=== PATIENT | female | born 1955 | race Caucasian/White ===

== ENCOUNTER 2018-08-09 14:45 | Emergency (ER) | payer MEDICARE, OTHER ==
[~2018-08-09] VITALS: Wt 67.2 kg
[2018-08-09] MEDS ORDERED: MAGN400O19 PO (15:08)
[2018-08-09] MEDS ORDERED: ACET325T45 PO (15:08)
[2018-08-09] MEDS ORDERED: BISA10SU75 PR (15:09)
[2018-08-09] MEDS ORDERED: NA P230E RC (15:10)
[2018-08-09] MEDS ORDERED: FER325 PO (15:11)
[2018-08-09] MEDS ORDERED: FLUO40CA PO (15:12)
[2018-08-09] MEDS ORDERED: IBUP-1545 PO (15:13)
[2018-08-09] MEDS ORDERED: LACO100T3 PO (15:13)
[2018-08-09] MEDS ORDERED: LEVO137T3 PO (15:14)
[2018-08-09] MEDS ORDERED: MAGN400T28 PO (15:14)
[2018-08-09] MEDS ORDERED: MIDO10TA PO (15:16)
[2018-08-09] MEDS ORDERED: MIRT15TA5 PO (15:16)
[2018-08-09] MEDS ORDERED: QUET200T27 PO (15:16)
[2018-08-09] MEDS ORDERED: RIBO400T PO (15:17)
[2018-08-09] MEDS ORDERED: SIMV5TAB14 PO (15:17)
[2018-08-09] MEDS ORDERED: SODI1TAB2 PO (15:18)
[2018-08-09] MEDS ORDERED: CHOL100062 PO (15:19)
[2018-08-09] MEDS ORDERED: TUBE5VIA3 ID (15:23)
[2018-08-09] MEDS ORDERED: DIPHENHYDRAMINE 25 MG CAP PO ONE (15:30)
[2018-08-09] MEDS ORDERED: LORAZEPAM 1 MG TAB PO ONE (15:30)
[2018-08-09 17:31] VITALS: BP 110/65; PULSE 100; RESP 22
--- NOTE | 2018-08-09 17:43 | ERD ---
ER Documentation Chief Complaint Chief Complaint bib ra from halfway for anxiety and allergic reaction, as per pt HPI 62-year-old female brought in from her halfway facility for a sensation of her throat closing and having difficulty breathing. Patient states this started after she ate lunch. She is complaining of shortness of breath and tightness in her throat. Otherwise history is limited as the patient is actively panicking. She does have a history of traumatic brain injury and psychiatric disorder. Per her daughter, her medications are currently being changed, so she thinks that may be this is why the patient is having an "episode" ROS All systems reviewed and are negative except as per history of present illness. Medications Home Meds Reported Medications Tuberculin,Purif.prot.deriv. (Tubersol) 5 Tub Unit/0.1 Ml Vial, 5 TUB ID QHS, VIAL INJECT 0.1ML INTRADERMALLY QHS EVERY 10 DAYS FOR PPD SCREENING FOR 11 DAYS READ IN 48HOURS.START DATE 08/05/18- END DATE 08/16/18 08/09/18 Cholecalciferol* (Vitamin D3*) 1,000 Unit Tablet, 2000 UNIT PO DAILY, TAB 08/09/18 Sodium Chloride* (Sodium Chloride*) 1 Gm Tablet, 2 GM PO TID, TAB 08/09/18 Simvastatin* (Simvastatin*) 5 Mg Tablet, 5 MG PO QHS, #30 TAB 08/09/18 Riboflavin (Riboflavin) 400 Mg Tablet, 400 MG PO DAILY, TAB 08/09/18 Quetiapine Fumarate* (Quetiapine Fumarate*) 200 Mg Tablet, 200 MG PO HS, TAB 08/09/18 Mirtazapine* (Mirtazapine*) 15 Mg Tablet, 15 MG PO HS, TAB 08/09/18 Midodrine* (Midodrine*) 10 Mg Tablet, 10 MG PO TID for HOLD FOR SBP>140, TAB 08/09/18 Magnesium Oxide* (Magnesium Oxide*) 400 Mg Tablet, 400 MG PO DAILY, TAB 08/09/18 Levothyroxine Sodium* (Levothyroxine Sodium*) 137 Mcg Tablet, 137 MCG PO BEFORE BREAKFAST, #30 TAB 08/09/18 Lacosamide (Vimpat) 100 Mg Tablet, 100 MG PO BID, TAB 08/09/18 Ibuprofen* (Ibuprofen*) 800 Mg Tab, 800 MG PO Q12H PRN for PAIN 4-7, TAB 08/09/18 Fluoxetine Hcl* (Fluoxetine Hcl*) 40 Mg Capsule, 80 MG PO DAILY, CAP 08/09/18 Ferrous Sulfate* (Ferrous Sulfate*) 325 Mg Tabec, 325 MG PO Q OTHER DAY, TAB 08/09/18 Na Phos,M-B/Na Phos,Di-Ba (Fleet Enema Extra) 230 Ml Enema, 118 ML RC Q3rd D, ENEMA 08/09/18 Bisacodyl* (Bisacodyl*) 10 Mg Supp, 10 MG MS Q24H for CONSTIPATION, SUPP 08/09/18 Magnesium Hydroxide* (Milk Of Magnesia*) 400 Mg/5 Ml Oral.susp, 30 ML PO DAILY, ML 08/09/18 Acetaminophen* (Acetaminophen*) 325 Mg Tablet, 650 MG PO Q6H PRN for MILD PAIN LEVEL 1-3, #30 TAB 08/09/18 Allergies Allergies: Coded Allergies: Iodine and Iodide Containing Produc (Unverified Allergy, Unknown, 08/09/18) Penicillins (Unverified Allergy, Unknown, 08/09/18) Sulfa (Sulfonamide Antibiotics) (Unverified Allergy, Unknown, 08/09/18) iodine (Unverified Allergy, Unknown, 08/09/18) mepivacaine (Unverified Allergy, Unknown, 08/09/18) shellfish derived (Unverified Allergy, Unknown, 08/09/18) sulfamethoxazole (Unverified Allergy, Unknown, 08/09/18) tetracycline (Unverified Allergy, Unknown, 08/09/18) PMhx/Soc Hx Neurological Disorder: Yes (traumatic brain injury, seizure disorder) Hx Psychiatric Problems: Yes (bipolar, anxiety, ) Hx Alcohol Use: No Hx Substance Use: No Hx Tobacco Use: No Smoking Status: Never smoker FmHx Family History: No diabetes Physical Exam Vitals Vital Signs Date Temp Pulse Resp B/P (MAP) Pulse Ox O2 O2 Flow FiO2 Time Delivery Rate 08/09/18 98.1 100 22 110/65 100 Room Air 17:31 (80) 08/09/18 98.1 110 22 112/67 100 Room Air 14:49 (82) 08/09/18 98.1 110 22 110/65 100 14:47 (80) Physical Exam Const: Panicking, hyperventilating, Head: Atraumatic Eyes: Normal Conjunctiva ENT: Normal External Ears, Nose and Mouth. Posterior oropharynx normal without swelling. No stridor or drooling. Normal phonation Neck: Full range of motion. No meningismus. Resp: Clear to auscultation bilaterally. No wheezing Cardio: Regular rate and rhythm, no murmurs Abd: Soft, non tender, non distended. Normal bowel sounds Skin: No petechiae or rashes Back: No midline or flank tenderness Ext: No cyanosis, or edema Neur: Awake and alert, normal speech, moving all extremities, no facial asymmetry Psych: Anxious, panicking, emotionally labile. No SI or HI. No hallucinations Results 24 hrs Current Medications Medications Dose Sig/Chloé Start Time Status Last (Trade) Ordered Route PRN Stop Time Admin Dose Reason Admin Lorazepam 1 mg ONCE ONCE 08/09/18 DC 08/09/18 (Ativan) PO 15:30 15:17 08/09/18 15:31 25 mg ONCE ONCE 08/09/18 DC 08/09/18 Diphenhydrami PO 15:30 15:20 ne HCl 08/09/18 15:31 (Benadryl) Procedures/[facility]M EMERGENT LABS AND DIAGNOSTIC STUDIES: 12-lead EKG was interpreted by Federico Caro MD: Normal Sinus Rhythm Normal axis Normal intervals No acute ST or T wave changes suggestive of acute ischemia or STEMI. Initial Nursing notes reviewed. Previous Medical Records requested via the Electronic Health Record. EMERGENCY DEPARTMENT COURSE / MEDICAL DECISION MAKING: Patient is presenting with what seems to be a panic attack. There are no signs of allergic reaction or anaphylaxis. Vitals are stable. She was treated with oral Ativan and Benadryl with significant improvement of her symptoms. Patient will be discharged back to her halfway facility and advised to follow-up with her psychiatrist. Return precautions were given. At this time I do not have any suspicion for acute pulmonary or cardiac emergency. Departure Diagnosis: Primary Impression: Panic attack Condition: Stable Patient Instructions: Panic Attack Additional Instructions: Make an appointment to speak with your psychiatrist regarding the changes to your psychiatric medications. DELMIS CARO MD Aug 09, 2018 17:43
== END 2018-08-09 17:32 | disposition home or self-care (01) ==
LOC: E/R 14:45
DX: F41.0 Panic disorder [episodic paroxysmal anxiety] (principal); R06.02 Shortness of breath
CPT/HCPCS: 93005